=== PATIENT | female | born 1930 | race Caucasian/White ===

== ENCOUNTER 2018-12-10 | Emergency (ER) | payer OTHER ==
[~2018-12-10] VITALS: Ht 157.5 cm; Wt 54.4 kg
--- NOTE | 2018-12-10 00:15 | NUR ---
Pt came to ER complaining of Left hand pain, following a fall after getting out of car. Bruising and deformity noted on left hand. Pt [id number]. Respirations even and unlabored. NAD noted. Pt put on the monitor and waiting for eval from ER MD.
--- NOTE | 2018-12-10 00:47 | NUR ---
Radiology at bedside for XRAY.
--- NOTE | 2018-12-10 02:04 | NUR ---
Patient discharged to home in stable condition. Written and verbal after care instructions given. Patient verbalizes understanding of instruction.
[2018-12-10 02:06] VITALS: BP 148/88
== END 2018-12-10 02:06 | disposition home or self-care (01) ==
LOC: ER
DX: S52.572A Other intraarticular fracture of lower end of left radius, initial encounter for closed fracture (principal); I10 Essential (primary) hypertension; Z96.642 Presence of left artificial hip joint; W01.0XXA Fall on same level from slipping, tripping and stumbling without subsequent striking against object, initial encounter; Y93.89 Activity, other specified; Y92.89 Other specified places as the place of occurrence of the external cause; Y99.8 Other external cause status
CPT/HCPCS: 73110